=== PATIENT | male | born 1940 | race Caucasian/White ===

== ENCOUNTER 2018-08-23 07:13 | Outpatient (CLI) | payer OTHER | END 2018-08-23 07:47 | disposition home or self-care (01) | LOC: LAB 07:13 | DX: N40.1 Benign prostatic hyperplasia with lower urinary tract symptoms (principal) ==

== ENCOUNTER 2018-09-26 10:20 | Emergency (ER) | payer OTHER ==
[~2018-09-26] VITALS: Ht 172.7 cm; Wt 56.7 kg
== END 2018-09-26 14:09 | disposition home or self-care (01) ==
LOC: ER 10:20
DX: K40.90 Unilateral inguinal hernia, without obstruction or gangrene, not specified as recurrent (principal); M13.88 Other specified arthritis, other site; M47.897 Other spondylosis, lumbosacral region

== ENCOUNTER 2018-11-11 07:08 | Outpatient (CLI) | payer OTHER | END 2018-11-11 09:18 | disposition home or self-care (01) | LOC: LAB 07:08 | DX: E78.89 Other lipoprotein metabolism disorders (principal); E07.89 Other specified disorders of thyroid; E53.8 Deficiency of other specified B group vitamins; E55.9 Vitamin D deficiency, unspecified; L90.0 Lichen sclerosus et atrophicus; A53.9 Syphilis, unspecified; R51 Headache; F02.80 Dementia in other diseases classified elsewhere, unspecified severity, without behavioral disturbance, psychotic disturbance, mood disturbance, and anxiety ==

== ENCOUNTER 2019-09-15 07:55 | Outpatient (CLI) | payer OTHER | END 2019-09-15 08:03 | disposition home or self-care (01) | LOC: LAB 07:55 | PROVIDERS: ATTEND Psychiatry & Neurology Pain Medicine | DX: E55.9 Vitamin D deficiency, unspecified (principal); R89.8 Other abnormal findings in specimens from other organs, systems and tissues; L90.0 Lichen sclerosus et atrophicus ==

== ENCOUNTER 2019-10-30 08:10 | Emergency (ER) | payer OTHER ==
[~2019-10-30] VITALS: Ht 165.1 cm; Wt 63.5 kg
[2019-10-30] MEDS ORDERED: [UNRECOGNIZED DRUG - REMARK] (08:24)
[2019-10-30] MEDS ORDERED: PEPCID AC20 MG PO (15:27)
[2019-10-30] MEDS ORDERED: APETIGEN-PLUS1 EACH PO (15:27)
== END 2019-10-30 15:48 | disposition home or self-care (01) ==
LOC: ER 08:10
DX: K29.00 Acute gastritis without bleeding (principal)